=== PATIENT | female | born 2000 | race Caucasian/White ===

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

== ENCOUNTER → 2021-08-03 | Outpatient (CLI) | payer BC ==
[~2021-08-03] MED LIST changes: +ALBU2.5V8 IH; -ALBU8.5H8 IH; +BUDE10.2 INH; +NAPR-514 PO; +NORE1TAB56 PO
--- NOTE | 2021-08-03 09:38 | RAD ---
XR FOOT_RIGHT 3 VIEWS Clinical indications: Reason: LATERAL RIGHT FOOT PAIN / Spl. Instructions: BRACELET REMOVED AFTER 1ST IMAGE / History: Findings: No acute fracture or dislocation or osteolytic process is evident. No periosteal reaction is evident. No plantar spur of the calcaneus is seen. IMPRESSION: No acute osseous abnormality is evident. Electronically signed by: Ramsey Winchester MD (08/03/2021 9:35 AM) [id number]
== END ==
LOC: RAD 09:16
PROVIDERS: ATTEND Nurse Practitioner
DX: S99.921A Unspecified injury of right foot, initial encounter (principal); X58.XXXA Exposure to other specified factors, initial encounter; Y93.89 Activity, other specified; Y92.89 Other specified places as the place of occurrence of the external cause; Y99.8 Other external cause status
CPT/HCPCS: 73630